=== PATIENT | male | born 1935 | race Two or more races ===

== ENCOUNTER → 2022-06-23 | Outpatient (CLI) | payer MEDICARE, BC ==
--- NOTE | 2022-06-23 11:08 | XR ---
EXAMINATION TYPE: XR Hip Bilateral Complete DATE OF EXAM: 06/23/2022 COMPARISON: NONE HISTORY: Pain TECHNIQUE: 2 views submitted FINDINGS: There is no evidence of erosive change or acute fracture. There is moderate concentric narrowing of the hip joint hypertrophic changes. There is calcification along the lateral margin of the right acetabulum. This can be associated with chronic acetabular labr um. Vascular calcifications in pelvis. IMPRESSION: 1. Moderate bilateral hip arthropathy correlate for femoral acetabular. Chronic acetabular labral tea r on the right in the differential diagnosis.
--- NOTE | 2022-06-23 11:09 | XR ---
EXAM TYPE: LUMBAR SPINE X RAY SERIES COMPARISON: NONE HISTORY: Pain TECHNIQUE: 4 views are submitted. FINDINGS: Alignment is anatomic. The pedicles are intact. The transverse processes are intact. There is diff use osteopenia with multilevel hypertrophic changes. There is facet arthropathy L4-5 and L5-S1. Nonsp ecific calcification seen anterior to the L1-2 disc space level. IMPRESSION: 1. Multilevel hypertrophic changes of the spine with facet arthropathy L4-5 and L5-S1.
== END | disposition home or self-care (01) ==
LOC: RADXRMAIN 09:45
PROVIDERS: ATTEND Family Medicine
DX: M16.0 Bilateral primary osteoarthritis of hip (principal); M24.851 Other specific joint derangements of right hip, not elsewhere classified; M47.817 Spondylosis without myelopathy or radiculopathy, lumbosacral region
CPT/HCPCS: 72110; 73521

== ENCOUNTER 2022-11-19 11:13 | Emergency (ER) | payer MEDICARE, BC ==
[2022-11-19 11:24] VITALS: RESP 18
[2022-11-19] MEDS ORDERED: LIDOCAINE 2%-EPI 1:100,000 20 ML VIAL SQ STA (12:10)
[2022-11-19] MEDS ORDERED: DIPH,PERTUS(ACELL)TETVAC-LF 0.5 ML VIAL IM ONE (12:10)
--- NOTE | 2022-11-19 12:18 | ED ---
General Adult HPI - General Chief complaint: Head Injury Stated complaint: Fall/Head Lac,No Thinners,Standing Position, Time Seen by Provider: 11/19/22 11:33 Source: patient Mode of arrival: wheelchair Limitations: no limitations - History of Present Illness Initial comments: 87-year-old male with past medical history significant for BPH on tamsulosin pr esents to the ED with a chief complaint of head injury. Patient states this morning at approximately 9 AM was bending to grab something from the cupboard when he got dizzy and lost his balance and fell backwards hitting the back of his head on a cupboard. There was no LOC. Denies any other injury at this time. Now notes a laceration to the back of his head. Denies nausea or vomiting. Denies chest pain or shortness preceding the fall. Per family, acting his normal self. Tetanus status unknown. No other complaints. - Related Data Allergies Allergy/AdvReac Type Severity Reaction Status Date / Time No Known Allergies Allergy Verified 11/19/22 11:24 Review of Systems ROS Statement: Those systems with pertinent positive or pertinent negative responses have been documented in the HPI. ROS Other: All systems not noted in ROS Statement are negative. Past Medical History Past Medical History: Hypertension, Prostate Disorder Additional Past Medical History / Comment(s): enlarged prostate History of Any Multi-Drug Resistant Organisms: None Reported Additional Past Surgical History / Comment(s): inner ear surgery jaida. Past Psychological History: No Psychological Hx Reported Smoking Status: Former smoker Past Alcohol Use History: None Reported Past Drug Use History: None Reported General Exam Limitations: no limitations General appearance: alert, in no apparent distress Head exam: Present: normocephalic, other (Laceration to the scalp without active bleeding. No Lara sign or raccoon's eyes. ) Eye exam: Present: normal appearance, PERRL, EOMI ENT exam: Present: mucous membranes moist Neck exam: Present: normal inspection Respiratory exam: Present: normal lung sounds bilaterally Cardiovascular Exam: Present: regular rate, normal rhythm GI/Abdominal exam: Present: soft Extremities exam: Present: normal inspection, other (Strength and sensation intact bilateral upper and lower extremities. DP/PT pulses 2+. Radial pulses 2+.) Back exam: Present: normal inspection Neurological exam: Present: alert, oriented X3, CN II-XII intact Course Vital Signs 11/19/22 11:21 Temperature 97.6 F Pulse Rate 81 Respiratory 18 Rate Blood Pressure 170/80 O2 Sat by Pulse 97 Oximetry Procedures - Laceration Laceration #1 Site: scalp Size (cm): 6 Description: linear Depth: simple, single layer Anesthetic Used: lidocaine 2%, with epi Anesthesia Technique: local infiltration Amount (mls): 4 Pre-repair: wound explored, irrigated extensively Type of Sutures: other Number of Sutures: 7 (Janet) Patient Tolerated Procedure: well, no complications Medical Decision Making - Medical Decision Making Was pt. sent in by a medical professional or institution (, PA, RAILROADER, urgent care, hospital, or [facility]...) When possible be specific @ -No Did you speak to anyone other than the patient for history (EMS, parent, family, police, friend...)? What history was obtained from this source @ -Spoke to family reports that the patient is acting his normal self. Did you review nursing and triage notes (agree or disagree)? Why? @ -I reviewed and agree with nursing and triage notes Were old charts reviewed (outside hosp., previous admission, EMS record, old EKG, old radiological studies, urgent care reports/EKG's, [facility] records)? Report findings @ -No old charts were reviewed Differential Diagnosis (chest pain, altered mental status, abdominal pain women, abdominal pain men, vaginal bleeding, weakness, fever, dyspnea, syncope, headache, dizziness, GI bleed, back pain, seizure, CVA, palpatations, mental health, musculoskeletal)? @ -Acute traumatic bleed, acute fracture. This is not meant to be an all- inclusive list. EKG interpreted by me (3pts min.). @ -As above X-rays interpreted by me (1pt min.). @ -None done CT interpreted by me (1pt min.). @ -CT brain interpreted by me showing no acute findings or evidence of bleed. Although patient has GCS of 15, head injury significant enough to cause a large laceration. Due to this, felt mechanism of injury significant enough to warrant a head CT. U/S interpreted by me (1pt. min.). @ -None done What testing was considered but not performed or refused? (CT, X-rays, U/S, labs)? Why? @ -None What meds were considered but not given or refused? Why? @ -None Did you discuss the management of the patient with other professionals (professionals i.e. , PA, RAILROADER, lab, RT, psych nurse, social science analyst, electricians top helper, teacher, human resources officer, ed case manager)? Give summary @ -No Was smoking cessation discussed for >3mins.? @ -No Was critical care preformed (if so, how long)? @ -No Were there social determinants of health that impacted care today? How? (Homelessness, low income, unemployed, alcoholism, drug addiction, transportation, low edu. Level, literacy, decrease access to med. care, [facility], rehab)? @ -No Was there de-escalation of care discussed even if they declined (Discuss DNR or withdrawal of care, Hospice)? DNR status @ -No What co-morbidities impacted this encounter? (DM, HTN, Smoking, COPD, CAD, Cancer, CVA, ARF, Chemo, Hep., AIDS, mental health diagnosis, sleep apnea, morbid obesity)? @ -BPH. Was patient admitted / discharged? Hospital course, mention meds given and route, prescriptions, significant lab abnormalities, going to OR and other pertinent info. @ -Discharged. CT brain shows no acute findings. Patient had tetanus updated. Laceration repaired with janet. For further details please see procedure note. After wound repair, covered with bacitracin and bandage. Discussed proper wound care. Discharged home in stable condition. Discussed return precautions with patient who verbalizes agreement. Undiagnosed new problem with uncertain prognosis? @ -No Drug Therapy requiring intensive monitoring for toxicity (Heparin, Nitro, Insulin, Cardizem)? @ -No Were any procedures done? @ -Yes, laceration repair Diagnosis/symptom? @ -Head injury, laceration Acute, or Chronic, or Acute on Chronic? @ -Acute Uncomplicated (without systemic symptoms) or Complicated (systemic symptoms)? @ -Uncomplicated Side effects of treatment? @ -No Exacerbation, Progression, or Severe Exacerbation? @ -No Poses a threat to life or bodily function? How? (Chest pain, [place], CA, pneumonia, PE, COPD, DKA, ARF, appy, cholecystitis, CVA, Diverticulitis, Homicidal, Suicidal, threat to staff... and all critical care pts) @ -No Disposition Clinical Impression: Head injury, Laceration Disposition: HOME SELF-CARE Condition: Good Instructions (If sedation given, give patient instructions): Head Injury (ED), Staple Care (ED) Additional Instructions: Please return to the Emergency Department if symptoms worsen or any other concerns. Please return in 7-10 days for staple removal. Monitor for signs of infection. Is patient prescribed a controlled substance at d/c from ED?: No Referrals: Wilberto Tellez DO [Primary Care Provider] - 1-2 days Time of Disposition: 13:28
--- NOTE | 2022-11-19 12:18 | CT ---
EXAMINATION TYPE: CT brain [place] DATE OF EXAM: 11/19/2022 COMPARISON: None HISTORY: Fall, open wound back of head CT DLP: [address] of the brain was performed. The ventricles, basal cisterns and sulci overlying the cerebral convexities demonstrate mild enlargem ent. There is no evidence for intracranial hemorrhage or sulcal effacement. There is decreased attenuatio n about the periventricular white matter and deep white matter of both cerebral hemispheres, compatib le with chronic small vessel ischemia. No mass effects are seen. If symptoms persist consider MRI. Osseous calvarium is intact. Right occipital scalp hematoma and soft tissue laceration. IMPRESSION: 1. Age related atrophic and chronic small vessel ischemic change without acute intracranial process seen at this time. CT Cervical Spine: Unenhanced CT of the cervical spine was performed with bone and soft tissue window settings submitted . Coronal and sagittal reconstruction is obtained. There is normal alignment and prevertebral soft tissues. No evidence for acute cervical fracture . Severe Scattered degenerative disc disease and spondylosis. Biapical scarring. Right thyroid mass. Correlate with ultrasound. IMPRESSION: 1. No evidence for acute fracture or subluxation of the cervical spine.
[2022-11-19] MEDS ORDERED: BACITRACIN OINT 1 EACH PACKET TOPICAL ONE (13:24)
[2022-11-19 14:28] VITALS: BP 146/75; PULSE 80; TEMP 98.3
== END 2022-11-19 13:35 | disposition home or self-care (01) ==
LOC: EC 11:13
DX: S01.01XA Laceration without foreign body of scalp, initial encounter (principal); I67.82 Cerebral ischemia; I10 Essential (primary) hypertension; Z87.891 Personal history of nicotine dependence; Z23 Encounter for immunization; W18.09XA Striking against other object with subsequent fall, initial encounter
CPT/HCPCS: 12002; 70450; 72125; 90471; 90715; 99283

== ENCOUNTER → 2023-11-05 | Outpatient (CLI) | payer MEDICARE, BC | END | disposition home or self-care (01) | LOC: LABPRL 09:55 | PROVIDERS: ATTEND Family Medicine | CPT/HCPCS: 80053; 80061; 82306; 83036; 84439; 84443; 85025 ==